=== PATIENT | female | born 1990 | race Hispanic/Latino ===

== ENCOUNTER 2020-07-02 13:23 | Inpatient (IN) | payer MEDICAID, OTHER ==
[2020-07-02] VITALS (29 sets, daily range): BP systolic 89–123; BP diastolic 42–64
[~2020-07-02] VITALS: Ht 152.4 cm; Wt 61.2 kg
[2020-07-02] MEDS ORDERED: 0.9%NACL 1000ML 1,000 ML IV ONE ×3 (13:45→13:55)
[2020-07-02 14:06] LABS: BASOPHILS % (AUTO) 0.4 % (0.0-5.0); EOSINOPHILS % (AUTO) 0.4 % (0.0-8.0); HEMATOCRIT 33.8 % (36-48); LYMPHOCYTES % (AUTO) 19.2 % (21.0-51.0); MEAN CORPUSCULAR HEMOGLOBIN 29.9 pg (27.0-33.0); MEAN CORPUSCULAR VOLUME 87.8 fL (79-99); MONOCYTES % (AUTO) 5.9 % (3.0-13.0); NEUTROPHILS % (AUTO) 73.5 % (40.0-77.0); PLATELET COUNT (AUTO) 485 K/uL (130-400); RED BLOOD CELL COUNT(AUTO) 3.85 MIL/uL (4.00-5.50); RED CELL DISTRIBUTION WIDTH 12.1 % (11.0-15.5); WHITE BLOOD COUNT (AUTO) 22.8 K/uL (4.8-10.8)
[2020-07-02] MEDS ORDERED: LIDOCAINE PF 100MG/5ML (2%) SYRINGE 5ML ONE (14:06)
[2020-07-02] MEDS ORDERED: MIDAZOLAM HCL 1 MG/ML 2ML VIAL ONE (14:06)
[2020-07-02] MEDS ORDERED: DEXAMETHASONE SOD PHOSPHATE 10MG/ML 1ML VIAL ONE (14:06)
[2020-07-02] MEDS ORDERED: ONDANSETRON 4MG INJ ONE (14:06)
[2020-07-02] MEDS ORDERED: PROPOFOL 10 MG/ML 20ML VIAL IV ONE (14:06)
[2020-07-02] MEDS ORDERED: FENTANYL CITRATE PF 50 MCG/1 ML 2ML VIAL ONE (14:07)
[2020-07-02 14:13] LABS: CREATININE 1.4 mg/dL (0.5-1.5); POTASSIUM 3.1 mmol/L (3.5-5.1)
[2020-07-02] MEDS ORDERED: ROCURONIUM 10MG/1ML SYR 10 MG/ML ML ONE (14:13)
[2020-07-02 14:15] LABS: INR 1.03 (0.85-1.15); PROTHROMBIN TIME 11.2 SEC (9.6-11.6)
[2020-07-02 14:17] LABS: PARTIAL THROMBOPLASTIN TIME 22.2 SEC (26.3-35.5)
[2020-07-02 14:18] LABS: ALBUMIN 3.4 g/dL (3.5-5.0); BILIRUBIN,TOTAL 0.3 mg/dL (0.2-1.0)
[2020-07-02] MEDS ORDERED: CEFAZOLIN SODIUM 1 GM VIAL ONE ×2 (14:19→14:20)
[2020-07-02] MEDS ORDERED: PHENYLEPHRINE HCL 10 MG/ML 1ML VIAL IV ONE (14:26)
[2020-07-02] MEDS ORDERED: GLYCOPYRROLATE 1 MG/5 ML SYRINGE ONE (14:56)
[2020-07-02] MEDS ORDERED: NEOSTIGMINE 5MG/5ML SYR IV ONE (14:56)
[2020-07-02] MEDS ORDERED: MEPERIDINE-PF 25 MG/ML SYG ONE (15:46)
[2020-07-02 15:50] LABS: HEMATOCRIT 19.1 % (36-48)
[2020-07-02] MEDS ORDERED: PROMETHAZINE HCL 25 MG/ML 1ML AMPULE IM PRN ×2 (16:45)
[2020-07-02] MEDS ORDERED: BISACODYL 10 MG SUPP.RECT RC PRN (16:45)
[2020-07-02] MEDS ORDERED: SIMETHICONE 80 MG TAB.CHEW PO PRN (16:45)
[2020-07-02] MEDS ORDERED: MEPERIDINE-PF 75 MG/ML SYG IM PRN (16:45)
[2020-07-02] MEDS ORDERED: DOCUSATE SODIUM 100 MG CAP PO PRN (16:45)
[2020-07-02] MEDS ORDERED: ACETAMINOPHEN WITH CODEINE 1 TAB TAB PO PRN (16:45)
[2020-07-02] MEDS ORDERED: IBUPROFEN 600 MG TABLET PO PRN (16:45)
[2020-07-02 17:24] LABS: MEAN CORPUSCULAR HEMOGLOBIN 30.4 pg (27.0-33.0); MEAN CORPUSCULAR HGB CONC 32.1 g/dL (32.0-36.0); MEAN CORPUSCULAR VOLUME 94.8 fL (79-99); PLATELET COUNT (AUTO) 249 K/uL (130-400); RED BLOOD CELL COUNT(AUTO) 1.94 MIL/uL (4.00-5.50); RED CELL DISTRIBUTION WIDTH 12.2 % (11.0-15.5); WHITE BLOOD COUNT (AUTO) 26.1 K/uL (4.8-10.8)
[2020-07-02 17:30] LABS: HEMATOCRIT 18.4 % (36-48)
[2020-07-03] MEDS: DEXTROSE 5 %-0.45 % NACL 1,000 ML IV PRN ×2 (00:19→07:43)
[2020-07-03 02:54] VITALS: BP 102/56
[2020-07-03 06:54] LABS: HEMATOCRIT 23.6 % (36-48); MEAN CORPUSCULAR HEMOGLOBIN 29.5 pg (27.0-33.0); MEAN CORPUSCULAR HGB CONC 35.2 g/dL (32.0-36.0); RED BLOOD CELL COUNT(AUTO) 2.81 MIL/uL (4.00-5.50); RED CELL DISTRIBUTION WIDTH 13.7 % (11.0-15.5); WHITE BLOOD COUNT (AUTO) 14.1 K/uL (4.8-10.8)
[2020-07-03 07:13] VITALS: BP 96/54
[2020-07-03 11:19] VITALS: BP 90/42
== END 2020-07-03 13:55 | disposition home or self-care (01) | DRG 545 ==
LOC: EDH 13:23 → EDHIP 13:24 → WSH 16:30
PROVIDERS: ADMIT Obstetrics & Gynecology; ATTEND Obstetrics & Gynecology
PROC: 0UB54ZZ Excision of Right Fallopian Tube, Percutaneous Endoscopic Approach (ICD-10-PCS; principal; 2020-07-03)
PROC: 10D24ZZ Extraction of Products of Conception, Ectopic, Percutaneous Endoscopic Approach (ICD-10-PCS; 2020-07-03)
DX: O00.90 Unspecified ectopic pregnancy without intrauterine pregnancy (principal)
CPT/HCPCS: 36415; 76801; 80053; 84702; 85014; 85018; 85025; 85027; 85610; 85730; 86850; 86900; 86901; 86923; 88305; A4344; G0378; J0690; J1100; J2001; J2175; J2250; J2370; J2405; J2550; J2704; J2710; J3010; J3490; J7030; P9016